=== PATIENT | male | born 1965 | race African-American/Black ===

== ENCOUNTER 2024-08-17 16:43 | Inpatient (IN) | payer OTHER ==
[2024-08-17 18:02] VITALS: BMI 28.8
[2024-08-17] MEDS ORDERED: MAG HYDROX/AL HYDROX/SIMETH 30 ML UNIT-DOSE CUP PO PRN (18:51)
[2024-08-17] MEDS ORDERED: guaiFENesin 600 MG TABLET.ER (FP) PO PRN (18:51)
[2024-08-17] MEDS ORDERED: MAGNESIUM HYDROX 2400MG/30ML ORAL SUSPENSION 30 ML CUP PO PRN (18:51)
[2024-08-17] MEDS ORDERED: BENZONATATE 200 MG CAPSULE PO PRN (18:51)
[2024-08-17] MEDS ORDERED: ACETAMINOPHEN 325 MG TABLET (FP) PO PRN (18:51)
[2024-08-17] MEDS ORDERED: BENZOCAINE/MENTHOL (CHLORASEPTIC ) LOZENGE MM PRN (18:51)
[2024-08-17] MEDS ORDERED: IBUPROFEN 600 MG TABLET (FP) PO PRN (18:51)
[2024-08-17] MEDS ORDERED: BISMUTH SUBSALICYLATE 524 MG/30 ML PO PRN (18:51)
[2024-08-17] MEDS ORDERED: IBUPROFEN 400 MG TABLET (FP) PO PRN (18:51)
[2024-08-17] MEDS ORDERED: METHOCARBAMOL 500 MG TABLET PO PRN (18:51)
[2024-08-17] MEDS ORDERED: ONDANSETRON *ODT* 4 MG TABLET SL PRN (18:51)
[2024-08-17] MEDS ORDERED: NALOXONE (NARCAN) HCL 4 MG/0.1 ML SPRAY NS PRN (18:51)
[2024-08-17] MEDS ORDERED: NICOTINE POLACRILEX 2 MG LOZENGE BC PRN (18:51)
[2024-08-17] MEDS ORDERED: POLYETHYLENE GLYCOL (HEALTHYLAX) 3350 17 GM PACKET PO PRN (18:51)
[2024-08-17] MEDS ORDERED: DICYCLOMINE HCL 10 MG CAPSULE PO PRN (18:51)
[2024-08-17] MEDS ORDERED: NICOTINE POLACRILEX 2 MG GUM BUC PRN (18:51)
[2024-08-17] MEDS ORDERED: LOPERAMIDE HCL 2 MG CAPSULE PO PRN (18:51)
[2024-08-17] MEDS ORDERED: METOPROLOL TARTRATE 25 MG TABLET (FP) ONE (21:21)
[2024-08-17] MEDS: METOPROLOL TARTRATE 25 MG TABLET (FP) PO ONE (21:24)
[2024-08-17] MEDS: MELATONIN 5 MG TABLETS PO SCH (23:02)
[2024-08-17] MEDS: THIAMINE 100 MG TABLET PO SCH (23:02)
[2024-08-18] MEDS: PRENATAL VITAMINS W/ FOLIC ACID TABLET (FP) PO SCH (10:55)
[2024-08-18 12:04] LABS: HEMATOCRIT 32.9 % (40.1-51.0); HEMOGLOBIN 10.4 g/dL (13.7-17.5); MCHC 31.6 g/dl (32.3-36.5); MEAN CELL VOLUME 92.7 fl (79.0-92.2); MEAN PLT VOLUME 10.9 fl (9.4-12.4); PLATELET COUNT 150 x10^3/uL (163-337); RDW 14.1 % (12.2-16.4)
[2024-08-18 12:11] LABS: CHLORIDE 106 mmol/L (98-107); POTASSIUM 3.4 mmol/L (3.5-5.1); SODIUM 138 mmol/L (136-145)
[2024-08-18 12:14] LABS: CALCIUM 8.5 mg/dL (8.5-10.1)
[2024-08-18 12:15] LABS: ANION GAP 6 mmol/L (4-13); CO2 27 mmol/L (21-32); GLUCOSE,RANDOM 107 mg/dL (74-106)
[2024-08-18 12:18] LABS: CREATININE 0.8 mg/dL (0.55-1.3); SGOT/AST 70 U/L (15-37); SGPT/ALT 47 U/L (13-61)
[2024-08-18 12:19] LABS: BILIRUBIN,TOTAL 0.7 mg/dL (0.2-1); TOT PROT 5.7 g/dl (6.4-8.2)
[2024-08-18 12:20] LABS: ALK PHOS 59 U/L (45-117)
[2024-08-18] MEDS: ASPIRIN 325 MG ENTERIC COATED TABLET (FP) PO SCH (15:15)
[2024-08-18] MEDS: POTASSIUM CHLORIDE ORAL LIQUID 20 MEQ/15 ML PO ONE (15:15)
[2024-08-18] MEDS: FERROUS SO4 325 MG TABLET (FP) PO SCH (17:35)
[2024-08-18] MEDS: OLANZapine 10 MG TABLET PO SCH (21:43)
[2024-08-19] MEDS ORDERED: POTASSIUM CHLORIDE ORAL LIQUID 20 MEQ/15 ML PO ONE (06:51)
[2024-08-19] MEDS: POTASSIUM CHLORIDE ORAL LIQUID 20 MEQ/15 ML PO ONE (08:28)
[2024-08-19 13:53] VITALS: BP 135/82; PULSE 93; RESP 19; TEMP 97.5
== END 2024-08-19 12:53 | disposition home or self-care (01) | DRG 774 ==
LOC: YASAS 16:43 → Y3N 19:26
PROVIDERS: ADMIT Allergy & Immunology; ATTEND Allergy & Immunology
PROC: HZ2ZZZZ Detoxification Services for Substance Abuse Treatment (ICD-10-PCS; principal; 2024-08-17)
DX: F10.230 Alcohol dependence with withdrawal, uncomplicated (principal); F14.20 Cocaine dependence, uncomplicated; F17.210 Nicotine dependence, cigarettes, uncomplicated; F20.9 Schizophrenia, unspecified; E87.6 Hypokalemia; D64.9 Anemia, unspecified; G47.00 Insomnia, unspecified; M25.562 Pain in left knee; R26.89 Other abnormalities of gait and mobility; Z99.89 Dependence on other enabling machines and devices; Z86.718 Personal history of other venous thrombosis and embolism; Z79.01 Long term (current) use of anticoagulants
CPT/HCPCS: 36415; 80053; 80305; 80307; 82962; 85027; 86780; 93005; 93010